=== PATIENT | female | born 1985 | race Caucasian/White ===

== ENCOUNTER 2016-05-23 10:20 | Emergency (ER) | payer BC ==
[2016-05-23 10:37] VITALS: BP 127/86
--- NOTE | 2016-05-23 12:05 | UC ---
Katie Mantilla Salem, [facility] for [facility] on 05/23/16 at 1156 . Complaint Female HPI - HPI Summary HPI Summary: HPI: Patient is a 30 y/o female who presents to with lower back and abd pain since 2 days. She states that pain is localized on the left anterior abd today and she reports left flank pain. (Pt states that last time she was in pain for pyelonephritis it was on the right side and pain was more severe.) She reports 2 episodes of diarrhea yesterday and pain while urinating, but denies fever and chills. She also states that she usually experiences urgency and that is unchanged from baseline. PMHx: Pyelonephritis. FHx: Type 2 DM - both grandparents. Renal calculi - father. note: VSS, afebrile 98.3F, post ox: 99%, LNMP: Apr 2016, rare EtOH, nonsmoker: Hx: kidney infection, sepsis; non-known allergies; Visit Hx: pyelonephritis July 2015. On 07/17/2015 c/o of 3 day hx of RLQ pain. She also c/o fever, chills, N/V, hematuria. She was in mild distress and urine had 3+ Leukocyte Esteras, 2+ blood , WBC of 19.3. Was admitted for pyelonephritis. Treated with Cipro. Nurses note: Started on Friday night, had to urinate more frequently. Wed started having lower abdominal pressure, and left-sided flank pain and ache. Has a history of kidney infection with sepsis: Jul, 2015. - History Of Current Complaint Chief Complaint: UCGU Stated Complaint: LOWER BACK/SIDE PAIN Time Seen by Provider: 05/23/16 10:45 Hx Obtained From: Patient Hx Last Menstrual Period: Last week in Apr Onset/Duration: Gradual Onset, Lasting Days - 2 days. Timing: Constant Severity Initially: Moderate Severity Currently: Moderate Aggravating Factor(s): Nothing Alleviating Factor(s): Nothing Associated Signs And Symptoms: Positive: Back Pain - Left CVA pain.. Negative: Fever - Allergies/Home Medications Allergies/Adverse Reactions: Allergies Allergy/AdvReac Type Severity Reaction Status Date / Time No Known Allergies Allergy Verified 07/17/15 12:34 Home Medications: Home Medications Benzipro 05/23/16 [History] PMH/Surg Hx/FS Hx/Imm Hx Endocrine History Of: Denies: Diabetes, Thyroid Disease Cardiovascular History Of: Denies: Cardiac Disorders, Hypertension, Pacemaker/ICD Respiratory History Of: Reports: Pneumonia - 2008 Denies: COPD, Asthma GI/ History Of: Denies: Ulcer - Surgical History Surgical History: Yes Surgery Procedure, Year, and Place: wisdom teeth 2014. May 2015- [facility] - ACL repair - Family History Known Family History: Positive: Diabetes - Both grandparents., Other - Renal calculi father. - Social History Alcohol Use: Rare Alcohol Amount: one day a week Substance Use Type: None Smoking Status (MU): Never Smoked Tobacco - Immunization History Most Recent Influenza Vaccination: 2013 Most Recent Tetanus Shot: Unsure Most Recent Pneumonia Vaccination: never Review of Systems Constitutional: Negative Gastrointestinal: Abdominal Pain - Left lower and left flank pain., Diarrhea Genitourinary: Other - Pain urinating. All Other Systems Reviewed And Are Negative: Yes Physical Exam Triage Information Reviewed: Yes Appearance: Well-Appearing, No Pain Distress, Well-Nourished Vital Signs: Initial Vital Signs Temp 98.3 F 05/23/16 10:29 Pulse 93 05/23/16 10:29 Resp 18 05/23/16 10:29 BP 127/86 05/23/16 10:29 Pulse Ox 99 05/23/16 10:29 Vital Signs Reviewed: Yes Eyes: Positive: Conjunctiva Clear ENT: Positive: Hearing grossly normal, Pharynx normal, TMs normal. Negative: Muffled/hoarse voice Neck: Positive: Supple, No Lymphadenopathy Respiratory: Positive: Chest non-tender, Lungs clear, Normal breath sounds, No respiratory distress Cardiovascular: Positive: RRR, No Murmur Abdomen Description: Positive: Soft, CVA Tenderness (L), Other: - POSSIBLE MILD LEFT CVA TENDERNESS. LLQ DISCOMFORT WITH PALPATION MOSTLY OVER INGUINAL REGION. Bowel Sounds: Positive: Present Musculoskeletal: Positive: Strength Intact, Other: - BYRD. Neurological: Positive: Alert Psychological: Positive: Age Appropriate Behavior Complaint Female Dx - Course Course Of Treatment: MDM: I discussed with pt at length possibility of UTI. Although the UA does not support that dx. Given her past medical hx, I started her on Cipro. She knows to call me in 2 days and she will go to the ER for fever , increased pain, or changes in sx. Differential dx: UTI, early pyelonephritis, ovarian cyst, gastroenteritis, or diverticulitis. UA: Urobilinogen o/w within normal limits. - Differential Dx/Diagnosis Provider Diagnoses: Dx: Early pyelonephritis or cystitis. Discharge - Discharge Plan Condition: Stable Disposition: HOME Prescriptions: Ciprofloxacin TAB* [Cipro Tab*] 500 mg PO BID #14 tab MDD 2 Patient Education Materials: Urinary Tract Infection in Women (ED), Acute Pyelonephritis (ED) Referrals: Dayne SANCHEZ,Quan Benton [Primary Care Provider] - Additional Instructions: WE DISCUSSED: This may be a bladder infection or early pyelonephritis. Given your history, I have started you on Cipro for 7 days. We will send your urine for culture. Go to ED for any temperature, increased pain or if you are not improving in 2 days. You can also call me here in 2 days with any questions or concerns. The documentation as recorded by the Katie tran Salem accurately reflects the service I personally performed and the decisions made by me, Neftaly Kyle MD.
== END 2016-05-23 12:10 | disposition home or self-care (01) ==
LOC: UCEAST 10:20
DX: R10.32 Left lower quadrant pain (principal); R19.7 Diarrhea, unspecified; R30.0 Dysuria
CPT/HCPCS: 81003; 99212; G0463

== ENCOUNTER 2016-06-26 10:41 | Emergency (ER) | payer BC ==
[2016-06-26 11:14] VITALS: BP 124/72
--- NOTE | 2016-06-26 11:33 | UC ---
Throat Pain/Nasal Roman HPI - HPI Summary HPI Summary: compaliont of sore throat that started 2 days ago dry cough that hurts her throat nasal congestion started today denies fever and chills, headache, N/V/D, ear pain took some aleve yesterday with some relief drinking hot water with honey with relief - History of Current Complaint Chief Complaint: UCGeneralIllness Stated Complaint: SORE THROAT Time Seen by Provider: 06/26/16 11:26 Hx Obtained From: Patient Hx Last Menstrual Period: 06/03/16 - Allergies/Home Medications Allergies/Adverse Reactions: Allergies Allergy/AdvReac Type Severity Reaction Status Date / Time No Known Allergies Allergy Verified 06/26/16 11:04 PMH/Surg Hx/FS Hx/Imm Hx Previously Healthy: Yes Endocrine History Of: Denies: Diabetes, Thyroid Disease Cardiovascular History Of: Denies: Cardiac Disorders, Hypertension, Pacemaker/ICD Respiratory History Of: Reports: Pneumonia - 2008 Denies: COPD, Asthma GI/ History Of: Denies: Ulcer - Surgical History Surgical History: Yes Surgery Procedure, Year, and Place: wisdom teeth 2014. May 2015- [facility] - ACL repair - Family History Known Family History: Positive: Diabetes - Both grandparents., Other - Renal calculi father. Negative: Cardiac Disease, Hypertension - Social History Occupation: Employed Full-time Lives: With Family Alcohol Use: Rare Alcohol Amount: one day a week Substance Use Type: None Smoking Status (MU): Never Smoked Tobacco - Immunization History Most Recent Influenza Vaccination: 2013 Most Recent Tetanus Shot: Unsure Most Recent Pneumonia Vaccination: never Review of Systems Constitutional: Negative Skin: Negative Eyes: Negative ENT: Sore Throat, Nasal Discharge Respiratory: Cough Cardiovascular: Negative Gastrointestinal: Negative Genitourinary: Negative Motor: Negative Neurovascular: Negative Musculoskeletal: Negative Neurological: Negative Psychological: Negative All Other Systems Reviewed And Are Negative: Yes Physical Exam Triage Information Reviewed: Yes Appearance: No Pain Distress, Well-Nourished Vital Signs: Initial Vital Signs Temp 98.9 F 06/26/16 11:06 Pulse 91 06/26/16 11:06 Resp 18 06/26/16 11:06 BP 124/72 06/26/16 11:06 Pulse Ox 99 06/26/16 11:06 Vital Signs Reviewed: Yes Eyes: Positive: Conjunctiva Clear ENT: Positive: Pharyngeal erythema, Nasal congestion, Nasal drainage, TMs normal Dental: Positive: Cervical Lymphadenopathy Respiratory: Positive: Lungs clear, Normal breath sounds, No respiratory distress, No accessory muscle use Cardiovascular: Positive: RRR, No Murmur, Pulses Normal Abdomen Description: Positive: Nontender, Soft Bowel Sounds: Positive: Present Musculoskeletal Exam: Normal Neurological Exam: Normal Psychological Exam: Normal Skin Exam: Normal Throat Pain/Nasal Course/Dx - Differential Dx/Diagnosis Differential Diagnosis/HQI/PQRI: Pharyngitis, Tonsillitis, URI Provider Diagnoses: viral pharyngitis Discharge - Discharge Plan Condition: Stable Disposition: HOME Patient Education Materials: Pharyngitis (ED) Referrals: Dayne SANCHEZ,Quan Benton [Medical Doctor] - Additional Instructions: PHARYNGITIS (Sore Throat) What is Pharyngitis? The medical name for a sore throat is Pharyngitis. It is caused by an infection or irritation of your throat or tonsils. The infection can be caused by a virus or by bacteria. Not everyone with Pharyngitis needs antibiotics. Antibiotics will not make viral infections better, and they will not help a sore throat caused by irritation. Symptoms May Include: Sore throat Swelling of the glands in the neck Trouble or pain with swallowing Fever Headache Cough Extreme tiredness Ear pain Treatment Recommendations: Gargle every few hours with a solution of 1/4 teaspoon of salt dissolved in 1/ 2 cup of warm water. Drink plenty of warm beverages, like tea with lemon, (with or without honey) and soup. You may eat and drink cold foods and liquids like frozen yogurt, popsicles, and ice water if that makes your throat feel better. The goal is to keep you well hydrated. Use a "cool-mist" vaporizer or humidifier in the room where you spend most of your time. If you get a sore throat often, consider adding an electronic air filter and humidifier to your furnace system. Don't smoke. Do not eat spicy foods. Take medicine exactly as prescribed. If you do not think it is helping, call your healthcare provider. Do not increase how much or how often you take it without getting their OK first. Non-prescription anti-inflammatory medicine like ibuprofen (Motrin, Advil) or naproxen (Aleve) may help lessen the pain. You should not take these medicines if you have had bleeding in your stomach in the past. Acetaminophen ( Tylenol) is another choice of medicine that may help the pain. If pain medicine that makes you tired or sleepy or contains narcotics is prescribed, you should not drink, drive, or participate in any other activities that you need to be clear-headed for. Please keep all medicines out of the reach of children. Do not get in close contact with anyone you know who has a sore throat. Use throat lozenges (Cepostat, [place], etc.) or suck on hard candy for temporary relief of the pain with swallowing. (Do not give to children under age 5.) Call Your Doctor or Return Here IF: Your symptoms do not start to get better within 2 days or you become worse. You have a fever over 101.0 F orally. You cant swallow liquids or saliva. You are drooling. You start to have trouble breathing. You start to have a rash. You start to have a stiff neck. You start to have pain in your chest. You start to have any symptoms that are new or worry you. Your blood pressure is pre-hypertensive reading. Please contact your primary care provider within 1 day -4 weeks for further evaluation.
== END 2016-06-26 12:07 | disposition home or self-care (01) ==
LOC: UCEAST 10:41
DX: J02.9 Acute pharyngitis, unspecified (principal); R05 Cough; R09.81 Nasal congestion
CPT/HCPCS: 87651; 99211; G0463

== ENCOUNTER 2017-04-18 07:07 | Day surgery (SDC) | payer BC ==
[~2017-04-18 07:07] MED LIST: Buffered Lidocaine 0.9% SYRIN* 5 ML/SYR SYRINGE INTRADERM ONE; Dexamethasone IV* 4 MG/ML 1 ML (4 MG) IV SLOW PU ONE; Famotidine IV* 10 MG/ML 2 ML (20 mg) IV ONE
[2017-04-18] MEDS ORDERED: Famotidine IV* 10 MG/ML 2 ML (20 mg) ONE (07:21)
[2017-04-18] MEDS ORDERED: Dexamethasone IV* 4 MG/ML 1 ML (4 MG) ONE (07:21)
[2017-04-18] MEDS ORDERED: Buffered Lidocaine 0.9% SYRIN* 5 ML/SYR SYRINGE ONE (07:21)
[2017-04-18] MEDS ORDERED: Midazolam* 1 MG/ML 10 ML VIAL (10 MG) ONE (08:24)
[2017-04-18] MEDS ORDERED: fentaNYL* 50 MCG/ML 2 ML VIAL (100 MCG VIAL) ONE ×5 (08:24→09:59)
[2017-04-18] MEDS ORDERED: Propofol* 10 MG/ML 20 ML BTL IV PUSH ONE (08:24)
[2017-04-18] MEDS ORDERED: Ondansetron INJ* 2 MG/ML VIAL ONE (08:24)
[2017-04-18] MEDS ORDERED: Ketorolac INJ* 30 MG/ML 1 ML VIAL ONE (08:24)
[2017-04-18] MEDS ORDERED: Lidocaine 2% PF * 5 ML VIAL ONE (08:25)
[2017-04-18] MEDS ORDERED: Phenylephrine INJ* 10 MG/ML 1 ML VIAL (10 MG) ONE (08:25)
[2017-04-18] MEDS ORDERED: VASOPRESSIN 20 UNITS/ML 1 ML VIAL ONE (08:38)
[2017-04-18] MEDS ORDERED: oxyCODONE/Acetamin 5/325 MG* TAB PO PRN (09:03)
[2017-04-18] MEDS ORDERED: DiMENhydriNATE IV* 50 MG/ML VIAL IV PUSH PRN (09:03)
[2017-04-18] MEDS ORDERED: Ondansetron INJ* 2 MG/ML VIAL IV PRN (09:03)
[2017-04-18] MEDS ORDERED: Naloxone* 0.4 MG/ML 1 ML VIAL IV PRN (09:03)
[2017-04-18] MEDS ORDERED: Scopolamine 1.5 mg* PATCH TRANSDERM PRN (09:03)
[2017-04-18] MEDS ORDERED: Glycopyrrolate IV* 0.2 MG/ML 1 ML VIAL ONE (09:25)
[2017-04-18] MEDS ORDERED: oxyCODONE/Acetamin 5/325 MG* TAB ONE (09:53)
[2017-04-18] MEDS ORDERED: Scopolamine 1.5 mg* PATCH ONE (09:53)
[2017-04-18] MEDS: fentaNYL* 50 MCG/ML 2 ML VIAL (100 MCG VIAL) IV PRN ×2 (10:00→10:05)
[2017-04-18 10:45] VITALS: BP 122/83
--- NOTE | 2017-04-18 20:39 | OP ---
OPERATIVE REPORT: DATE OF OPERATION: 04/18/17 DATE OF : 87 SURGEON: Mike Conroy MD ANESTHESIA: General endotracheal tube. PRE-OP DIAGNOSIS: Submucous fibroid. POST-OP DIAGNOSIS: Submucous fibroid. OPERATIVE PROCEDURE: Hysteroscopy, D and C, MyoSure. COMPLICATIONS: None. FINDINGS: On exam under anesthesia, the uterus was mid position and not enlarged. On hysteroscopy, t here was a large 3 cm submucous fibroid coming from the anterior fundal wall. Both tubal ostia visua lized. The rest of the cavity appeared normal. DESCRIPTION OF PROCEDURE: The patient identified, procedure identified as D and C, hysteroscopy, Mario Alberto Sure. The patient was taken to the operating room, prepped and draped in the usual fashion in the do rsal lithotomy position under general anesthesia. Two single-toothed tenaculums were placed on the a nterior lip of the cervix. The cervix was dilated up to a #27 Sunny dilator. The MyoSure hysteroscop e was inserted. The above findings were noted through the MyoSure hysteroscope. 20 cc of dilute vas opressin solution was injected directly into the fibroid after aspiration. The MyoSure, initially th e regular was placed and MyoSure was used to resect the fibroid, this after a while stopped working a nd a MyoSure XL was used to bring down the large fibroid with it. It did have broad base down to the level of the endometrium. 1200 cc of deficit was noted and decision was made to terminate the proce dure at this point. Most of the fibroid had been resected and it was felt that it was an adequate pr ocedure. All sponge and instrument counts were correct and all instruments were removed from the vag jose and the patient returned to recovery room in stable condition. [id number]/[facility] #: [id number]
== END 2017-04-18 11:11 | disposition home or self-care (01) ==
LOC: OR 07:07
PROVIDERS: ATTEND Obstetrics & Gynecology
DX: D25.0 Submucous leiomyoma of uterus (principal); N93.9 Abnormal uterine and vaginal bleeding, unspecified
CPT/HCPCS: 81025; 88305; 88360; A9270-GY; J1100; J1885; J2250; J2405; J2704; J3010

== ENCOUNTER 2017-10-01 10:56 | Emergency (ER) | payer BC ==
[2017-10-01 11:59] LABS: Urine Appearance Clear; Urine Blood Negative (Negative); Urine Color Colorless; Urine Ketones Negative (Negative); Urine Protein Negative (Negative); Urine Specific Gravity 1.001 (1.010-1.030); Urine Urobilinogen Negative (Negative)
--- NOTE | 2017-10-01 13:29 | ED ---
GI/ HPI - HPI Summary HPI Summary: This is Juany tran, documenting for attending Linda Lopez MD. This patient is a 31 year old F presenting to [facility] with a chief complaint of suprapubic pain with urination for the past three days that has worsened today with left flank pain. Pain is worsened with urination. Mervin burning with urination, fever, chills, changes in urine appearance or smell. Patient reports a history of urosepsis resulting in three nights of hospitalization with similar symptoms. She was put on Ciprofloxacin upon discharged, which worked well for her. - History of Current Complaint Chief Complaint: EDUrogenitalProblems Time Seen by Provider: 10/01/17 13:18 Stated Complaint: PAIN URINATING Hx Last Menstrual Period: 06/03/16 Onset/Duration: Started Days Ago, Worse Since - today Timing: Constant Severity: Moderate Pain Intensity: 3 Location of Pain: Suprapubic, Flank Associated Signs and Symptoms: Positive: Flank Pain, UTI Symptoms. Negative: Diaphoresis, Fever, Hematuria - Additional Pertinent History Primary Care Physician: KAELYN - Allergy/Home Medications Allergies/Adverse Reactions: Allergies Allergy/AdvReac Type Severity Reaction Status Date / Time Seasonal/Environmental Allergy Congestion Uncoded 04/18/17 07:26 Allergies PMH/Surg Hx/FS Hx/Imm Hx Endocrine/Hematology History: Denies: Hx Diabetes, Hx Thyroid Disease Cardiovascular History: Denies: Hx Hypertension, Hx Pacemaker/ICD, Other Cardiovascular Problems/ Disorders Respiratory History: Reports: Hx Pneumonia - 2008 Denies: Hx Asthma, Hx Chronic Obstructive Pulmonary Disease (COPD), Other Respiratory Problems/Disorders GI History: Denies: Hx Ulcer, Other GI Disorders History: Reports: Hx Kidney Infection - 2016, [place]eloneph[place] with [place]rosepsis- [place] [facility] [place]: Hx Renal Disease, Other Problems/Disorders Musculoskeletal History: Reports: Hx Orthopedic Injury - ACL tear Denies: Other Musculoskeletal History Sensory History: Denies: Hx Contacts or Glasses, Hx Hearing Aid Opthamlomology History: Denies: Hx Contacts or Glasses Neurological History: Denies: Other Neuro Impairments/Disorders Psychiatric History: Denies: Hx Panic Disorder - Surgical History Surgery Procedure, Year, and Place: [place] teeth 2014. ACL repair - Lt KNEE May 2015- [facility] - Hx Anesthesia Reactions: No Infectious Disease History: No Infectious Disease History: Denies: Hx Clostridium Difficile, Hx Hepatitis, Hx Human Immunodeficiency Virus (HIV), Hx of Known/Suspected MRSA, Hx Shingles, Hx Tuberculosis, Hx Known/ Suspected VRE, Hx Known/Suspected VRSA, History Other Infectious Disease, Traveled Outside the [place] in Last 30 Days - Family History Known Family History: Positive: Diabetes - Both grandparents., Other - Renal calculi father. Negative: Cardiac Disease, Hypertension - Social History Alcohol Use: Occasionally Alcohol Amount: one day a week Substance Use Type: Reports: None Smoking Status (MU): Never Smoked Tobacco Review of Systems Negative: Fever, Chills Positive: Abdominal Pain - suprapubic Positive: flank pain, pain. Negative: burning, hematuria All Other Systems Reviewed And Are Negative: Yes Physical Exam - Summary Physical Exam Summary: Appearance: Well-appearing, Well-nourished Skin: Warm Eyes: Normal ENT: Normal Neck: Supple, nontender Respiratory: Clear to auscultation Cardiovascular: Regular rate, regular rhythm. Normal S1, S2. Abdomen: Soft, left CVA tenderness with right lower abdominal with mild lower abdominal tenderness Musculoskeletal: Normal, Strength/ROM Intact Neurological: Normal, A&Ox3 Psychiatric: Normal General: No acute distress Triage Information Reviewed: Yes Vital Signs On Initial Exam: Initial Vitals Temp Pulse Resp BP Pulse Ox 98.7 F 88 16 137/83 98 10/01/17 11:01 10/01/17 11:01 10/01/17 11:01 10/01/17 11:01 10/01/17 11:01 Vital Signs Reviewed: Yes Diagnostics - Vital Signs Vital Signs Temp Pulse Resp BP Pulse Ox 10/01/17 11:01 98.7 F 88 16 137/83 98 - Laboratory Lab Results: Lab Results 10/01/17 Range/Units 11:47 Urine Color Colorless Urine Appearance Clear Urine pH 7.0 (5-9) Ur Specific Adell 1.001 L (1.010-1.030) Urine Protein Negative (Negative) Urine Ketones Negative (Negative) Urine Blood Negative (Negative) Urine Nitrate Negative (Negative) Urine Bilirubin Negative (Negative) Urine Urobilinogen Negative (Negative) Ur Leukocyte Esterase Negative (Negative) Urine Glucose Negative (Negative) Lab Statement: Any lab studies that have been ordered have been reviewed, and results considered in the medical decision making process. GIGU Course/Dx - Course Assessment/Plan: Left CVA tenderness, UA done in ED- elevated pH at 7.0 with urinary sx of urinary pressure and left CVA tenderness, has had an episode of pyelo in 2016 and feels similar, will tx with outpt cipro 500 BID x 10 days - Diagnoses Differential Diagnoses - Female: Urinary Tract Infection - Ascending Provider Diagnoses: UTI (urinary tract infection) Discharge - Sign-Out/Discharge Documenting (check all that apply): Patient Departure - Discharge Plan Condition: Stable Disposition: HOME Prescriptions: Ciprofloxacin TAB* [Cipro 500 MG TAB*] 500 mg PO BID 10 Days #20 tab Referrals: Melissa Costello MD [Primary Care Provider] - Additional Instructions: Follow up with PCP if any concerns - Billing Disposition and Condition Condition: STABLE Disposition: Home
[2017-10-01 14:01] VITALS: BP 133/87
== END 2017-10-01 13:57 | disposition home or self-care (01) ==
LOC: ED 10:56
DX: N39.0 Urinary tract infection, site not specified (principal); Z83.3 Family history of diabetes mellitus; Z84.1 Family history of disorders of kidney and ureter
CPT/HCPCS: 81003; 99282

== ENCOUNTER 2018-07-19 12:07 | Observation (INO) | payer BC ==
--- OUTSIDE RECORDS SUMMARY | 2018-07-19 12:19 | XMS REPORT | Continuity of Care Document ---
:1985 Author Organization [facility] Address [address], [place] [id number] Phone Care Team Providers Name Role Phone Glenis Powell NP Unavailable Unavailable Allergies, Adverse Reactions, Alerts Substance Reaction Status No Known Allergies Active Medications Medication Instructions Dosage Effective Dates Status Comments (start - stop) TRANEXAMIC ACID Not Available - Active (unknown strength) Problems Condition Effective Dates (start - Clinical Status Comments stop) Body mass index (BMI) 32.0-32.9, - adult Human immunodeficiency virus [HIV] - counseling Encounter for screening for human - immunodeficiency virus Encounter for oth general cnsl and advice on contraception Encntr screen for infections w sexl mode of transmiss Noninflammatory disorder of vagina, unspecified Encounter for ot general cnsl and - advice on contraception Body mass index (BMI) 33.0-33.9, adult 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) w/o abn findings Irregular menstruation, unspecified Submucous leiomyoma of uterus Other specified noninflammatory disorders of uterus Encounter for oth general cnsl and advice on contraception Encntr screen for infections w sexl mode of transmiss Excessive and frequent menstruation with regular cycle Encntr screen for infections w sexl mode of transmiss Encounter for oth general cnsl and advice on contraception Anogenital (venereal) warts Encounter for oth general cnsl and advice on contraception Encounter for surveillance of contraceptive pills Encounter for surveillance of contraceptive pills 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 Other Retail Product Demo Specialist.Svc. STI WET SMEAR ASSAY OF BODY FLUID-PH Results Test Name Date and Time Measure Units Reference Range Abnormal Flag Status Comments Panel Description: Wet Mount Final Wet Mount 13:47:30 NegativeHyphae/Martine: noBudding Final yeast: noTrich: noClue cells: noWBCs: yes (few)Amine/Whiff test: negativepH: 5.5 Panel Description: C trach DNA XXX Ql PCR Final Swab CT - Negative N Final Performed Vaginal 00:00:00 by:
&emsp;&ensp;CDD ([id number])

Panel Description: Amplified GC - Vaginal Final Swab GC - Negative N Final : Vaginal 00:00:00 No

Performed by:
&emsp;&ensp;CDD ([id number])

Advance Directives Directive Yes / No Effective Date File Name No information Encounters Encounter Practice Location Reason(s) Diagnoses Date Provider Providers Description For Visit Copied on Encounter PREVENTIVE [facility] Vaginal Human Sherry Glenis. Referring COUNSELING, [facility] [place] Discharge immunodeficiency 1-[address] Provider: 8-14 Minutes Southern a/o Odor virus [HIV] [address] St, [place], [place] ([place], [address], Shanice Mcfarlane, [address]) ter for [place]. [address] screening for [address], St, [place], [place], [place], [place], [address]. [id number], virusEncounter tel:[phone] [place] for ot general [phone] tel:+ cnsl and advice [phone] on contraceptionEnc ntr screen for infections w sexl mode of transmissNoninfl ammatory disorder of vagina, unspecified [facility] Encounter for Mar- Giaino Referring [facility] [place] ot general cnsl 4-201 Melissa. Provider: [place] and advice on [address] [place] contraception[address]od [address], [place], [place], [place], [address] [place], [address], [address] (BMI) 33.0-33.9, [place]. [address], St, [place], adultEncntr for tel:[phone] [place], [place] [address] [place], [address]. [id number], (general) tel:+[phone] [place] (routine) w/o [id number] tel:[phone] abn [phone] findingsIrregula r menstruation, unspecified [facility] Submucous Nov-1 Sherry Glenis. [facility] [place] leiomyoma of 6 [address] uterus [address], [place], [place], [address], [place], [address], [place], [place], [id number], [place] tel:[phone] [facility] Other specified Nov-0 Sherry Glenis. [facility] [place] noninflammatory 2- [address] Southern disorders of [address], [place], [place], [address], [place], [address], [place], [place], [id number], [place] tel:[phone] [facility] Body mass index Oct-3 Sherry Glenis. Referring [facility] [place] (BMI) 32.0-32.9, 0-201 [address] Provider: [facility] adultEncounter [address], [place], [place], [address], [place], [address] [place], [address] cnsl and advice [place]. [address] on [address], St, [place], contraceptionEnc [place], [place], [place], [address]. [id number], infections w [place] sexl mode of tel:[phone] transmissExcessi [id number] ve and frequent menstruation with regular cycle [facility] Encntr screen Mar-0 Sherry Glenis. [facility] [place] for infections w [address] [place] sexl mode of [address], [place], [place], [address], [facility], [address] for oth [place]. [address] general cnsl and St, [place], advice on [place], contraception [id number], [place] tel:[phone] [facility] Anogenital Apr- Sherry Galvin. [facility] [place] (venereal) [address] [place] wartsEncounter [address], [place], [place], [address], [facility], [address] cnsl and advice [place]. [address], [place], [place], [id number], [place] tel:[phone] [facility] Encounter for Dawna [facility] [place] surveillance of [place]. [address] contrace[address], [place], [place], [facility], [address] [address] tel:[phone] St, [place], [address] [place], [id number], [place] tel:[phone] [facility] Jan- Dawna [facility] [place]. [address], [place], [place], [facility], [facility] [address]. [address] tel:[phone] St, [place], [address] [place], [id number], [place] tel:[phone] [facility] Encounter for Jan- [place] [facility] [place] surveillance of [place]. [address] contrace[address], [place] pills [place], [facility], [facility] [address]. [address] tel:[phone] St, [place], [address] [place], [id number], [place] tel:[phone] [facility] TIRE RECAPPER Exam, 0 Parete [facility] [place] Routine WWEOCP, . [address] Surve[address], [place], [place], [facility], [address] [address] tel:[phone] St, [place], [address] [place], [id number], [place] tel:[phone] Family History Family Member Diagnosis Age At Onset Mother No history of Myocardial infarction 1st degree relative No hx of cancer of breast, colon, endometrium or ovary Father No history of Myocardial infarction Mother No history of Stroke No family history of Cancer, breast 1st degree relative No hx of coronary heart disease (female <65, male <55) No family history of Cancer, ovarian 1st degree relative No hx of venous thromboembolism Father No history of Stroke Immunizations Vaccine Date Status Comments measles, mumps and rubella administered Note: PER HEALTH HX ; Source: virus vaccine Source Unspecified measles, mumps and rubella administered Note: PER HEALTH HX ; Source: virus vaccine Source Unspecified hepatitis B vaccine, adult administered Note: PER HEALTH HX ; Source: dosage Source Unspecified hepatitis B vaccine, adult administered Note: PER HEALTH HX ; Source: dosage Source Unspecified Hep B, adult, 3 dose administered Note: PER HEALTH HX ; Source: Source Unspecified hepatitis A vaccine, adult administered Note: PER HEALTH HX ; Source: dosage Source Unspecified Hep A (adult) administered Note: PER HEALTH HX ; Source: Source Unspecified Payers Payer name Insurance type Covered green party ID Authorization(s) [facility] [id number] Social History Type Description Quantity Date Captured Comments Alcohol Use Details Unknown Caffeine Use Details Unknown Tobacco Use Status Never smoked tobacco Smoking Status Never smoker Non-Smoking Tobacco : No Details Available : No Details Available 2018 Use Details Sex Female Vital Signs Date / Height Weight BMI Pulse Blood Temperature Respiratory Body Head BMI Pulse Inhaled Time: Rate Pressure Rate Surface Circumference percentile Ox Ox Area No information Chief Complaint And Reason For Visit Most recent encounter only, dated '07/15/2018 12:40'. Vaginal Discharge a /o Odor (chief complaint) Reason For Referral Reason For Referral No information Plan Of Treatment Date Type Action Status Goal Dietary management education, guidance, and counseling completed Referral Ordered: ordered Mike Ortiz (related to Submucous leiomyoma of uterus) Referral Referred To: ordered Mike Ortiz [address] [place], [phone] Ordered: Referrals: Box Gluer. Mike Ortiz. Evaluate and treat History Of Present Illness Encounter Date Complaint History Of Present Illness No information Functional Status Date Functional Assessment No information Medications Administered Medication Instructions Dosage Effective Dates (start - stop) Status Comments No information Instructions Date Instruction Additional Information Dietary management education, Related to Body mass index (BMI) guidance, and counseling 32.0-32.9, adult Assessments Type Assessment Date assessment Human immunodeficiency virus [HIV] counseling assessment Encounter for screening for human immunodeficiency virus 2018 assessment Encounter for oth general cnsl and advice on contraception 2018 assessment Encntr screen for infections w sexl mode of transmiss assessment Noninflammatory disorder of vagina, unspecified Goals Health Concern Goal Type Priority Status Date No information Medical Equipment Description Device [place] Device Identifier Effective Dates (start - stop ) Status No information Mental Status Date Cognitive Assessment No information Health Concerns Observation Date No information Concern Status Date No information
--- OUTSIDE RECORDS SUMMARY | 2018-07-19 12:19 | XMS REPORT | Continuity of Care Document ---
:1985 External Reference #:[id number] Author Name Mike Conroy M.D. Address [address] [place] [address] Care Team Providers Name Role Phone Melissa Costello MD Primary Care Physician Unavailable Payers Date Identification Numbers Payment Provider Subscriber Policy Number: [id number] [facility] Bautista PayID: [id number] [address] [address] [place] [address] Advance Directives Description No Information Available Problems Description No Information Family History Date Family Member(s) Observation Comments Father due to HI () Mother A&W Children None Siblings 1 Siblings Oldest of 2 children First Sister A&W Paternal Grandfather due to Unknown to pt () Paternal Grandmother due to Unknown to pt () Maternal Grandfather due to Congestive Heart Failure () Maternal Grandmother due to Surgical complications () Social History Type Date Description Comments Sex Unknown Education Highest Level Completed, Master's Degree Marital Status Single Lives With Mother Sleep Typically sleeps 7 hours a night Pets 1 cat Pets 2 dogs 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 [place] Tobacco Use Start: Unknown Never Smoked Cigarettes ETOH Use Occasionally consumes alcohol 1-2 xwk Recreational Drug Use Denies Drug Use Tobacco Use Start: Unknown Patient has never smoked Smoking Status Reviewed: 07/15/18 Patient has never smoked Exercise Type/Frequency Exercises regularly 4xwk Seat Belt/Car Seat Always uses seat belt Currently Active Patient is currently sexually active Condom Use Always Contraceptive Methods Current methods include condoms Allergies, Adverse Reactions, Alerts Description No Known Drug Allergies Medications Active Medications SIG Qnty Indications Ordering Provider Date Ferrex 150 1 by mouth every 60caps Mike Conroy, 07/15/2018 150mg day M.DLinda Capsules Lysteda 2 by mouth three 30tabs Sudhakar Blackwell, 06/19/2018 650mg Tablets times a day CNM during period Ibuprofen Unknown Vitamin Plus Unknown Iron History Medications Microgestin 04/05 1 by mouth qd-28 63tabs Mike Pierce 04/09/2018 - day cycle Rui Conroy 06/10/2018 1-20mg-mcg Tablets Ferrex 150 1 by mouth every 60caps Mike Pierce 04/09/2018 - 150mg day Rui Conroy 06/16/2018 Capsules No Active Medications Unknown 06/03/2017 - 06/03/2017 Lysteda 2 by mouth three 30tabs Mike Pierce 06/03/2017 - 650mg Tablets times a day Rui Conroy 04/09/2018 during period Doxycycline Hyclate 1 by mouth twice 14tabs D25.0 Mike Pierce 05/13/2017 - a day Rui Conroy 06/03/2017 100mg Tablets No Active Medications Mike Pierce 02/21/2017 - Rui Conroy 05/13/2017 One Daily Unknown - Multivitamin/Iron 06/15/2018 Adult Tablets Medications Administered in Office Medication SIG Qnty Indications Ordering Provider Date PT SCRN Tbco Id as Non User Itzel Hernandez MD 06/18/2018 Injection PT SCRN Tbco Id as Non User Mike Conroy M.D. 06/03/2017 Injection PT SCRN Tbco Id as Non User Mike Conroy M.D. 05/13/2017 Injection PT SCRN Tbco Id as Non User Mike Conroy M.D. 04/08/2017 Injection Immunizations Description No Information Available Vital Signs Date Vital Result Comment 07/15/2018 3:02pm BP Systolic 122 mmHg BP Diastolic 72 mmHg Height 64 inches 5'4" Weight 196.00 lb BMI (Body Mass Index) 33.6 kg/m2 Last Menstrual Period [id number] 0 06/18/2018 2:00pm BP Systolic 132 mmHg BP Diastolic 80 mmHg Height 64 inches 5'4" Weight 197.00 lb BMI (Body Mass Index) 33.8 kg/m2 Last Menstrual Period 7819885 0 04/09/2018 2:22pm BP Systolic 132 mmHg BP Diastolic 86 mmHg Height 64 inches 5'4" Weight 202.00 lb BMI (Body Mass Index) 34.7 kg/m2 Last Menstrual Period 4400569 0 06/03/2017 2:05pm Height 64 inches 5'4" Weight 204.00 lb BMI (Body Mass Index) 35.0 kg/m2 Last Menstrual Period [id number] 0 05/13/2017 3:38pm BP Systolic 124 mmHg BP Diastolic 76 mmHg Body Temperature 97.4 F Oral Height 64 inches 5'4" Weight 201.00 lb BMI (Body Mass Index) 34.5 kg/m2 0 04/08/2017 3:04pm BP Systolic 108 mmHg BP Diastolic 82 mmHg Body Temperature 97.5 F Heart Rate 84 /min Respiratory Rate 14 /min Height 64 inches 5'4" Weight 206.00 lb BMI (Body Mass Index) 35.4 kg/m2 Last Menstrual Period 9196457 0 02/21/2017 2:58pm BP Systolic 122 mmHg BP Diastolic 82 mmHg Height 64 inches 5'4" Weight 208.00 lb BMI (Body Mass Index) 35.7 kg/m2 Last Menstrual Period [id number] 0 Results Test Date Facility Test Result H/L Range Note Laboratory test 04/18/2017 [facility] Surgical SEE RESULT [address] [place] [address] Pathology BELOW [phone] CBC Auto Diff 04/08/2017 [facility] White Blood 7.8 10^3/uL N 3.5-10.8 [place] [address] Count [phone] Red Blood Count 4.75 10^6/uL N 4.0-5.4 Hemoglobin 12.9 g/dL N 12.0-16.0 Hematocrit 40 % N 35-47 Mean Corpuscular Volume 84 fL N 80-97 Mean Corpuscular Hemoglobin 27 pg N 27-31 Mean Corpuscular HGB Conc 32 g/dL N 31-36 Red Cell Distribution Width 14 % N 10.5-15 Platelet Count 278 10^3/uL N 150-450 Mean Platelet Volume 10 um3 N 7.4-10.4 Abs Neutrophils 4.2 10^3/uL N 1.5-7.7 Abs Lymphocytes 2.7 10^3/uL N 1.0-4.8 Abs Monocytes 0.4 10^3/uL N 0-0.8 Abs Eosinophils 0.5 10^3/uL N 0-0.6 Abs Basophils 0.1 10^3/uL N 0-0.2 Abs Nucleated RBC 0 10^3/uL Granulocyte % 54.3 % N 38-83 Lymphocyte % 34.3 % N 25-47 Monocyte % 4.9 % N 1-9 Eosinophil % 5.8 % N 0-6 Basophil % 0.7 % N 0-2 Nucleated Red Blood Cells % 0.1 Type And Screen 04/08/2017 [facility] Patient Blood Type B Positive [place] [id number] [phone] Antibody Screen NEGATIVE 1 SEE RESULT BELOW Name: REGLA BAUTISTA : [address]: Mike Conroy MD Acct: [id number] Unit: [id number] AGE: 31 Location: OR Re04/18/17 SEX: F Status: DEP [facility] [place] SPEC: [id number] SAMINA: 04/18/17- SUBM DR: Mike Conroy MD REQ: [id number] RECD: 04/18/17-1056 STATUS: SOUT _ ORDERED: LEVEL 4, IMMUNO-QUANT FINAL DIAGNOSIS Uterus, endometrium, curettage: -- Abundant cellular smooth muscle fragments with significant mitotic activity. See comment. -- Secretory endometrium. -- No evidence of endometrial hyperplasia or neoplasia identified. Comment: Specimen demonstrates numerous fragments of cellular smooth muscle admixed with scattered elements of benign secretory endometrium. The smooth muscle fragments demonstrates increased mitotic activity (average of 8/10 high power wilcox with new count <10/10 HPF). No necrosis or significant atypia is noted. These findings escobedo classification as leiomyoma with significant mitotic activity. These lesions typically demonstrate clinical behavior comparable to conventional leiomyoma. An immunohistochemical stain for KI-67 was performed with appropriate controls and demonstrates a KI-67 index of less than 10% in smooth muscle. PRE-OPERATIVE DIAGNOSIS Submucous leiomyoma of uterus GROSS DESCRIPTION The specimen is received in formalin labeled, Fibroid, and consists of a 3.5 x 5.5 by up to 1.0 cm aggregate of goldsmith-white rubbery tissue fragments admixed with goldsmith-pink to red-brown irregular soft tissue fragments. Community Service Worker sections are submitted in four cassettes. Signed (signature on file) Harvinder Ahn MD [id number] END OF REPORT * ML=Testing performed at Main Lab DEPARTMENT OF PATHOLOGY, [address] [place] [address] Harvinder Ahn M.D. Director [facility] # [id number] Procedures Date Code Description Status 06/18/2018 83923 Echography Pelvic Limited Or Follow-Up Completed 06/18/2018 83092 Echography Transvaginal Completed 04/18/2017 71259 Hysteroscopy W/Removal Leiomyomta Completed Encounters Type Date Location Provider Dx Diagnosis Office Visit 06/18/2018 [facility] Itzel Hernandez MD D25.0 Submucous leiomyoma 2:15p of uterus N93.9 Abnormal uterine and vaginal bleeding, unspecified Office Visit 06/03/2017 2:00p [facility] Mike Pierce D25.0 Submucous leiomyoma Rui Conroy of uterus Office Visit 05/13/2017 3:40p [facility] Office Mike Merino5.0 Submucous leiomyoma Rui Conroy of uterus Office Visit 04/08/2017 3:20p [facility] Mike Pierce Z01.818 Encounter for other Rui Conroy preprocedural examination Office Visit 02/21/2017 3:20p [facility] Mike Merino5.0 Submucous leiomyoma Rui Conroy of uterus Plan of Treatment Future Appointment(s):07/22/2018 8:00 am - Mike Conroy M.D. at [facility]07/15/2018 - Mike Conroy M.D.D50.9 Iron deficiency anemia, ivfckqsuqerN53.0 Submucous leiomyoma of uterusComments:needs resection suspect it is prolapsing through the cervix
--- OUTSIDE RECORDS SUMMARY | 2018-07-19 12:19 | XMS REPORT | Continuity of Care Document ---
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 [facility] [place] [address], [place], [place], [address], [facility], [address] , [place], [place], [id number], [place] tel:[phone] [facility] Human Sherry Galvin. Referring [facility] [place] immunodeficiency [address] Provider: [facility] virus [HIV] [address], [place], [address], [place], [facility], [address] for [place]. [address] screening [address], [place], [place], [place], [address]. [id number], virusEncounter tel:+ [place] for oth general [phone] tel:+ cnsl and advice [phone] on contraceptionEnc ntr screen for infections w sexl mode of transmissNoninfl ammatory disorder of vagina, unspecified [facility] Encounter for José Miguel Referring [facility] [place] ot general cnsl 4 Melissa. Provider: Steve and advice on [address] [place] [address], [place], Guggino F, [facility], [address] [place], [address], [address] (BMI) 33.0-33.9, [address], [place], adultEncntr for tel:+7 [place], painter [place] [address] [place], [address]. [id number], (general) tel:+60 [place] (routine) w/o [id number] tel:[phone] abn [phone] findingsIrregula r menstruation, unspecified [facility] Submucous Sherry Galvin. [facility] [place] leiomyoma of 6 [address], [place], [place], [address], [facility], [address], [place], [place], [id number], [place] tel:[phone] [facility] Other specified Nov-0 Sherry Galvin. [facility] [place] noninflammatory - [address] disorders of [address], [place], [place], [address], [place], [address], [place], [place], [id number], [place] tel:[phone] [facility] Body mass index Oct-3 Sherry Galvin. Referring [facility] [place] (BMI) 32.0-32.9, 0-201 [address] Provider: [facility] adultEncount 7 , [place], [place], [address], [place], [address] [place], [address] cnsl and advice [place]. [address], [place], [place], contraceptionEnc [place], [address]. [id number], infections w [place] sexl mode of tel:[phone] transmissExcessi [phone] ve and frequent menstruation with regular cycle [facility] Encntr screen Mar-0 Sherry Galvin. [facility] [place] for infections w - [address] sexl mode of [address], [place], [place], [address], [place], [address] for oth [place]. [address] general cnsl and , [place], advice on [place], contraception [id number], [place] tel:[phone] [facility] Anogenital Apr- Sherry Galvin. [facility] [place] (venereal) [address], [place], [place], [address], [place], [address] cnsl and advice [place], [place], [place], [id number], [place] tel:[phone] [facility] Encounter for Apr- [facility] [place] surveillance of - [place]. [address], [place], [place], [place], [address] [address] tel:[phone] St, [place], [address] [place], [id number], [place] tel:[phone] [facility] Nov-1 Rap[facility] [place] 2-201 [place]. [address], [place], [facility], [address] [address] tel:[phone] St, [place], [address] [place], [id number], [place] tel:[phone] [facility] Encounter for [facility] [place] surveillance of Andrae. [address], [place], [facility], [address] [address] tel:+[phone] St, [place], [address] [place], [id number], [place] tel:[phone] [facility] COUPLER Exam, [place] [facility] [place] Routine [facility], [place]. [address] [facility] Surveillance [address], [place], [facility], [address] [address] tel:[phone] St, [place], [address] [place], [id number], [place] tel:[phone] Family History Family Member Diagnosis Age At [...] Unspecified Payers Payer name Insurance type Covered republican ID Authorization(s) [facility] [id number] Social History Type Description Quantity Date Captured Comments Alcohol Use Details Unknown Caffeine Use Details Unknown Tobacco Use Status Unknown Smoking Status Never smoker Sex Female Vital Signs Date / Height Weight BMI Pulse Blood Temperature Respiratory Body Head BMI Pulse Inhaled Time: Rate Pressure Rate Surface Circumference percentile Ox Ox Area No information Chief Complaint And Reason For Visit No information Reason For Referral Reason For Referral No information Plan Of Treatment Date Type Action Status Goal Dietary management education, guidance, and counseling completed Referral Ordered: ordered Mike Ortiz (related to Submucous leiomyoma of uterus) Referral Referred To: ordered Mike Ortiz [address] [place], [phone] Ordered: Referrals: Infrastructure Software Engineer. Mike Ortiz. Evaluate and treat History Of Present Illness Encounter Date Complaint History Of Present Illness No information Functional Status Date Functional Assessment No information Medications Administered Medication Instructions Dosage Effective Dates (start - stop) Status Comments No information Instructions Date Instruction Additional Information Dietary management education, Related to Body mass index (BMI) guidance, and counseling 32.0-32.9, adult Assessments Type Assessment Date No information Goals Health Concern Goal Type Priority Status Date No information Medical Equipment Description Device [place] Device Identifier Effective Dates (start - stop ) Status No information Mental Status Date Cognitive Assessment No information Health Concerns Observation Date No information Concern Status Date No information
--- NOTE | 2018-07-19 12:33 | ED ---
GI/ HPI - HPI Summary HPI Summary: This patient is a 32 year old female presenting to [facility] with a chief complaint of iron deficiency. The patient was experiencing vaginal bleeding for a month due to a fibroid. Her OBGYN stated on 2 days ago that her iron levels were too low (Hgb 6.9 L) and if she were to menstruate she would need to come to the ED. The patient began her menstrual period last night. The patient reports light- headedness. The patient denies pain, nausea, vomiting, palpitations, and constipation. The patient took 150 mg of iron this morning. The patient previously had a fibroid removal last April. Ciprofloxacin TAB* [Cipro 500 MG TAB*] 500 mg PO BID 10 Days #20 tab 10/01/17 [ Rx] - History of Current Complaint Chief Complaint: EDGeneral Time Seen by Provider: 07/19/18 12:26 Stated Complaint: BLOOD LEVELS NOW PER PT Hx Obtained From: Patient Hx Last Menstrual Period: 06/03/16 Onset/Duration: Started Days Ago Current Severity: None Pain Intensity: 0 Associated Signs and Symptoms: Positive: Lightheadedness - Additional Pertinent History Primary Care Physician: KAELYN - Allergy/Home Medications Allergies/Adverse Reactions: Allergies Allergy/AdvReac Type Severity Reaction Status Date / Time Seasonal/Environmental Allergy Congestion Uncoded 07/19/18 12:10 Allergies PMH/Surg Hx/FS Hx/Imm Hx Endocrine/Hematology History: Denies: Hx Diabetes, Hx Thyroid Disease Cardiovascular History: Denies: Hx Hypertension, Hx Pacemaker/ICD, Other Cardiovascular Problems/ Disorders Respiratory History: Reports: Hx Pneumonia - 2008 Denies: Hx Asthma, Hx Chronic Obstructive Pulmonary Disease (COPD), Other Respiratory Problems/Disorders GI History: Denies: Hx Ulcer, Other GI Disorders History: Reports: Hx Kidney Infection - 2016, Pyelonephritis with urosepsis- E Col[facility] - [facility] Denies: Hx Renal Disease, Other Problems/Disorders Musculoskeletal History: Reports: Hx Orthopedic Injury - ACL tear Denies: Other Musculoskeletal History Sensory History: Denies: Hx Contacts or Glasses, Hx Hearing Aid Opthamlomology History: Denies: Hx Contacts or Glasses Neurological History: Denies: Other Neuro Impairments/Disorders Psychiatric History: Denies: Hx Panic Disorder - Surgical History Surgery Procedure, Year, and Place: [place] teeth 2014. ACL repair - Lt KNEE May 2015- [facility] - Hx Anesthesia Reactions: No Infectious Disease History: No Infectious Disease History: Denies: Hx Clostridium Difficile, Hx Hepatitis, Hx Human Immunodeficiency Virus (HIV), Hx of Known/Suspected MRSA, Hx Shingles, Hx Tuberculosis, Hx Known/ Suspected VRE, Hx Known/Suspected VRSA, History Other Infectious Disease, Traveled Outside the [place] in Last 30 Days - Family History Known Family History: Positive: Diabetes - Both grandparents., Other - Renal calculi father. Negative: Cardiac Disease, Hypertension - Social History Alcohol Use: Occasionally Alcohol Amount: one day a week Substance Use Type: Reports: None Smoking Status (MU): Never Smoked Tobacco Review of Systems Negative: Palpitations Positive: Other. Negative: Vomiting, Nausea - denies constipation Negative: pain Neurological: Other - Lightheadedness All Other Systems Reviewed And Are Negative: Yes Physical Exam - Summary Physical Exam Summary: VITAL SIGNS: Reviewed. GENERAL: Patient is a well-developed and nourished FEMALE who is lying comfortable in the stretcher. Patient is not in any acute respiratory distress. HEAD AND FACE: No signs of trauma. No ecchymosis, hematomas or skull depressions. No sinus tenderness. EYES: Pale sclera, EOMI x 2, No injected conjunctiva, no nystagmus. EARS: Hearing grossly intact. Ear canals and tympanic membranes are within normal limits. MOUTH: Oropharynx within normal limits. NECK: Supple, trachea is midline, no adenopathy, no JVD, no carotid bruit, no c- spine tenderness, neck with full ROM. CHEST: Symmetric, no tenderness at palpation LUNGS: Clear to auscultation bilaterally. No wheezing or crackles. CVS: Tachycardic, regular rhythm, S1 and S2 present, no murmurs or gallops appreciated. ABDOMEN: Soft, non-tender. No signs of distention. No rebound no guarding, and no masses palpated. Bowel sounds are normal. EXTREMITIES: FROM in all major joints, no edema, no cyanosis or clubbing. NEURO: Alert and oriented x 3. No acute neurological deficits. Speech is normal and follows commands. SKIN: Dry and warm, pale. VENEER MATCHER: Patient Declined Exam Triage Information Reviewed: Yes Vital Signs On Initial Exam: Initial Vitals Temp Pulse Resp BP Pulse Ox 98.1 F 113 16 136/89 100 07/19/18 12:10 07/19/18 12:10 07/19/18 12:10 07/19/18 12:10 07/19/18 12:10 Vital Signs Reviewed: Yes Diagnostics - Vital Signs Vital Signs Temp Pulse Resp BP Pulse Ox 07/19/18 12:10 98.1 F 113 16 136/89 100 - Laboratory Result Diagrams: 07/19/18 12:22 07/19/18 12:22 Lab Statement: Any lab studies that have been ordered have been reviewed, and results considered in the medical decision making process. - EKG 1232 Cardiac Rate: Tachycardia - 114 BPM EKG Rhythm: Sinus Tachycardia ST Segment: Normal Ectopy: None Summary of EKG Findings: No ST Elevations, No axis. Re-Evaluation - Re-Evaluation First Eval Re-Evaluation Time: 13:19 Comment: Results discussed with patient. GIGU Course/Dx - Course Assessment/Plan: This patient is a 32-year-old female who presents to the emergency department with chief complaint of having slight dizziness, palpitations and she started having vaginal bleed since last night. She reports that she has history of uterine fibroids and she has been bleeding heavily. She has seen her S IRON WORK[facility] doctor Dr. iWnter and he has found out that the patient is being anemic. The patient is taking Adderall pills however because of the symptoms he referred to the emergency room for further workup and management. Patient denies any headache, denies any blood patient, denies any chest pain or shortness of breath. In the ED course we obtained an IV access, I believe cholecystitis and blood work was ordered. Blood test results shows wbcs of 6.3, hemoglobin 6.7, hematocrit 23, platelet is 364. PTT is 22.8. At this time since the patient is having a symptomatic anemia with a hiatal deficiency anemia I order a blood transfusion. I discussed the benefits and risk of blood transfusion with the patient and she agrees for the transfusion. Consent is on the chart. I discussed my physical exam and findings with and Dr. Herman from the S [facility] WORK[facility] and he will admit the patient to his services for further workup and management. The patient is hemodynamically stable alert and oriented 3. - Diagnoses Provider Diagnoses: Vaginal bleeding, Symptomatic anemia - Critical Care Time Critical Care Time: 75-104 min Discharge - Sign-Out/Discharge Documenting (check all that apply): Patient Departure - Admission Patient Received Moderate/Deep Sedation with Procedure: No - Discharge Plan Condition: Stable Disposition: ADMITTED TO [facility] Referrals: Melissa Costello MD [Primary Care Provider] - - Billing Disposition and Condition Condition: STABLE Disposition: Admitted to [facility] - Attestation Statements Document Initiated by Chuchoibe: Yes Documenting Scribe: Angel German Provider For Whom Jyotsna is Documenting (Include Credential): Pedrito Rodriges MD Scribe Attestation: Angel Mantilla, scribed for Pedrito Rodriges MD on 07/19/18 at 1348. Scribe Documentation Reviewed: Yes Provider Attestation: The documentation as recorded by the Angel tran accurately reflects the service I personally performed and the decisions made by , Pedrito Rodriges MD Status of Scribe Document: Viewed
[2018-07-19] MEDS ORDERED: NS 0.9% 1000 ML** 1,000 ML IV ONE (12:56)
[2018-07-19 13:01] LABS: ABS Basophils 0.1 10^3/ul (0-0.2); ABS Eosinophils 0.2 10^3/ul (0-0.6); ABS Lymphocytes 1.2 10^3/ul (1.0-4.8); ABS Monocytes 0.3 10^3/ul (0-0.8); ABS Neutrophils 4.5 10^3/ul (1.5-7.7); Eosinophil % 3.9 %; Hematocrit 23 % (35-47); Hemoglobin 6.7 g/dL (12.0-16.0); Lymphocyte % 18.9 %; Mean Corpuscular HGB Conc 30 g/dL (31-36); Mean Corpuscular Hemoglobin 19 pg (27-31); Mean Corpuscular Volume 63 fL (80-97); Nucleated Red Blood Cells % 0.2; Platelet Count 364 10^3/uL (150-450); Red Blood Count 3.62 10^6 /uL (3.70-4.87); Red Cell Distribution Width 16 % (10.5-15); White Blood Count 6.3 10^3/uL (3.5-10.8)
[2018-07-19 13:11] LABS: Activated Partial Thrombo Time 22.8 seconds (26.0-36.3); INR 1.06 (0.82-1.09)
[2018-07-19 13:15] LABS: Albumin/Globulin Ratio 1.4 (1-3); BUN/Creatinine Ratio 18.8 (8-20); Calcium 8.6 mg/dL (8.6-10.3); EGFR African American 120.1 (>60); EGFR Non-African American 99.2 (>60); Globulin 2.8 g/dL (2-4); Potassium 3.9 mmol/L (3.5-5.0); Total Bilirubin 0.2 mg/dL (0.2-1.0); Total Protein 6.8 g/dL (6.4-8.9)
[2018-07-19 13:19] LABS: Microcytosis 2+; Polychromasia 1+
--- NOTE | 2018-07-19 16:22 | HP ---
History of Present Illness - History of Present Illness Reason for Visit: Abnormal Uterine Bleeding History of Present Illness: Mrs. Bautista is a 32 yo lady with known Uterine Fibroids and secondary menorrhagia and anemia. She started vaginal bleeding yesterday at noon and today presented to the Emergency room with persistent heavy vaginal bleeding, feeling lightheaded and dizziness. Her last hemoglobin at her last office visit was 6.9g/dl and in the ER was 6.7 along with positive orthostatic signs/ symptoms. She is being admitted for blood transfusion, monitoring. 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 Alcohol: Occassional - infrequent Drugs: None Review of Systems - Review of Systems Constitutional: Negative: Fever, Chills, Sweats, Weakness, Malaise, Other Respiratory: Positive: SOB with Excertion Cardiovascular: Positive: Light Headedness Gastrointestinal: Negative: Nausea, Vomiting, Abdominal Pain, Diarrhea, Constipation, Melena, Hematochezia, Other Genitourinary: Negative: Dysuria, Frequency, Incontinence, Hematuria, Retention , Other Neurological: Negative: Weakness, Numbness, Incoordination, Change in Speech, Confusion, Seizures, Other - Medications/Allergies Allergies/Adverse Reactions: Allergies Allergy/AdvReac Type Severity Reaction Status Date / Time Seasonal/Environmental Allergy Congestion Uncoded 07/19/18 12:10 Allergies Medications: Current Medications Sodium Chloride (Ns 0.9% 1000 Ml) 1,000 mls @ 125 mls/hr IV PER RATE ARLYN Exam - Exam Vital Signs: Vital Signs (72 hours) 07/19/18 07/19/18 07/19/18 12:10 12:39 13:06 Temperature 98.1 F Pulse Rate 113 116 122 Respiratory 16 Rate Blood Pressure 136/89 (mmHg) O2 Sat by Pulse 100 100 98 Oximetry 07/19/18 07/19/18 07/19/18 14:00 14:10 14:39 Temperature Pulse Rate 115 115 106 Respiratory Rate Blood Pressure 133/85 135/96 (mmHg) O2 Sat by Pulse 100 99 99 Oximetry 07/19/18 07/19/18 07/19/18 14:50 15:00 15:09 Temperature Pulse Rate 105 103 103 Respiratory Rate Blood Pressure 133/93 129/85 (mmHg) O2 Sat by Pulse 100 99 100 Oximetry 07/19/18 07/19/18 15:37 15:52 Temperature 99.7 F Pulse Rate 103 Respiratory 18 18 Rate Blood Pressure 129/85 (mmHg) O2 Sat by Pulse 100 Oximetry General: Alert, Oriented x3, Cooperative, No acute distress Lungs: Clear to auscultation, Normal air movement Cardiovascular: Regular rate Abdomen: Normal bowel sounds, Soft, No tenderness, No hepatospenomegaly, No masses Neurological: Normal speech Psych/Mental Status: Mental status NL Assessment/Plan - Assessment/Plan Assessment: Menorrhagia secondary to Uterine Fibroids with chronic and acute blood loss anemia, symptomatic Plan: IV hydration Blood transfusion 2 Units PRBC NPO after midnight Admission discussed with her Pan Dumper Dr. Chay Conroy, we also discussed the possibility for surgical treatment during this hospitalization.
[2018-07-19] MEDS: NS 0.9% 1000 ML** 1,000 ML IV SCH (17:59)
[2018-07-19 21:49] LABS: Hematocrit 29 % (35-47); Hemoglobin 8.6 g/dL (12.0-16.0); Mean Corpuscular HGB Conc 29 g/dL (31-36); Mean Corpuscular Hemoglobin 21 pg (27-31); Mean Corpuscular Volume 72 fL (80-97); Mean Platelet Volume 8.5 fL (7.4-10.4); Platelet Count 329 10^3/uL (150-450); Red Blood Count 4.07 10^6 /uL (3.70-4.87); Red Cell Distribution Width 23 % (10.5-15); White Blood Count 9.3 10^3/uL (3.5-10.8)
[2018-07-20] MEDS: NS 0.9% 1000 ML** 1,000 ML IV SCH (03:14)
[2018-07-20] MEDS ORDERED: Famotidine IV* 10 MG/ML 2 ML (20 mg) IV ONE (08:04)
[2018-07-20] MEDS ORDERED: Buffered Lidocaine 1% SYRIN* 1 ML/SYRINGE INTRADERM ONE (08:06)
[2018-07-20] MEDS ORDERED: Dexamethasone TAB* 4 MG PO ONE (08:06)
[2018-07-20] MEDS ORDERED: Ondansetron INJ* 2 MG/ML VIAL ONE (08:06)
[2018-07-20] MEDS ORDERED: Lactated Ringers 1000 ML Bag* 1,000 ML IV SCH (09:00)
[2018-07-20] MEDS ORDERED: PROCHLORPERAZINE INJ 5 MG/ML 2 ML VIAL IV PRN (10:36)
[2018-07-20] MEDS ORDERED: fentaNYL* 50 MCG/ML 2 ML VIAL (100 MCG VIAL) IV PRN (10:36)
[2018-07-20] MEDS ORDERED: DiMENhydriNATE IV* 50 MG/ML VIAL IV PUSH PRN (10:36)
[2018-07-20] MEDS ORDERED: Naloxone* 0.4 MG/ML 1 ML VIAL IV PRN (10:36)
[2018-07-20] MEDS ORDERED: oxyCODONE/Acetamin 5/325 MG* TAB PO PRN (10:36)
[2018-07-20] MEDS ORDERED: Scopolamine 1.5 mg* PATCH TRANSDERM PRN (10:36)
[2018-07-20] MEDS ORDERED: Morphine 4 MG/ML VIAL (1 ml) 4 MG/ML VIAL IV PRN (10:36)
[2018-07-20] MEDS ORDERED: Midazolam* 1 MG/ML 5 ML VIAL (5 MG) ONE (10:46)
[2018-07-20] MEDS ORDERED: fentaNYL* 50 MCG/ML 2 ML VIAL (100 MCG VIAL) ONE ×2 (10:46→12:54)
[2018-07-20] MEDS ORDERED: KETAMINE HCL* 50 MG/ML 10 ML VIAL ONE (10:46)
[2018-07-20] MEDS ORDERED: Lidocaine 2% PF * 5 ML VIAL ONE ×2 (10:48→12:43)
[2018-07-20] MEDS ORDERED: Propofol* 10 MG/ML 20 ML BTL ONE ×2 (10:48→12:43)
[2018-07-20] MEDS ORDERED: Ondansetron ODT TAB* 4 MG ONE (11:12)
[2018-07-20] MEDS ORDERED: Dexamethasone TAB* 4 MG ONE (11:12)
[2018-07-20] MEDS ORDERED: VASOPRESSIN 20 UNITS/ML 1 ML VIAL ONE (12:03)
[2018-07-20] MEDS ORDERED: PROCHLORPERAZINE INJ 5 MG/ML 2 ML VIAL ONE (12:43)
[2018-07-20] MEDS ORDERED: ceFOXitin(*) 1 GM VIAL ONE (12:59)
[2018-07-20] MEDS ORDERED: Ketorolac INJ* 30 MG/ML 1 ML VIAL ONE (13:08)
[2018-07-20 14:20] VITALS: BP 129/88
[2018-07-20] MEDS ORDERED: Acetaminophen TAB* 325 MG ONE (14:46)
--- NOTE | 2018-07-22 13:11 | OP ---
OPERATIVE REPORT: DATE OF OPERATION: DATE OF : 87 SURGEON: Mike Conroy MD ANESTHESIA: General endotracheal tube. PRE-OP DIAGNOSES: Submucous fibroid and anemia. POST-OP DIAGNOSIS: Submucous fibroid and anemia. OPERATIVE PROCEDURE: Hysteroscopic resection of submucous fibroid. COMPLICATIONS: Significant dilation of the cervix. FINDINGS: On exam under anesthesia, the uterus was mid position. There was a dilated cervix, but no mass protruded out the cervix as was seen previous on exam. DESCRIPTION OF PROCEDURE: The patient was identified, procedure identified as a D and C hysteroscopy , MyoSure resection. The patient was taken to the operating room, prepped and draped in the usual fa shion in dorsal lithotomy position under general anesthesia. The cervix was grasped with 2 single-to oth tenaculums. Again, the expected mass that had been protruding through the cervical os was not pr esent. It was visible through the cervical os and was grasped initially with an Allis and then with a Imrta and what could be brought out was brought out through the incision, this was excised using the Bovie. Further attempts at bringing the whole fibroid out through the incision were unsuccessful. Hysteroscope was inserted and no good seal was obtained and water, the distention medium came right b ack out when it flowed in. An attempt was made to use the hysteroscopic MyoSure to resect, but becau se of poor distention, it was difficult to get good visualization and after resection of some of the myoma through the hysteroscope using the MyoSure, the procedure was abandoned. Good hemostasis was v erified. At beginning of the procedure, vasopressin 20 units in 100 was injected approximately 10 c c into the leiomyoma. On hysteroscopy, it was noted that there was a posterior fibroid that was fill ing the cavity and obscured visualization. [id number]/[facility] #: [id number]
[2018-07-23] MEDS ORDERED: Scopolamine PATCH Remove* 1 NOTE MISC PATCH OFF ONE (10:38)
--- NOTE | 2018-07-23 11:32 | DS ---
CC: Melissa Costello MD DISCHARGE SUMMARY: DATE OF ADMISSION: 07/19/18 DATE OF DISCHARGE: 07/20/18 PRIMARY CARE PHYSICIAN: Melissa Costello MD PRINCIPAL DIAGNOSES: 1. Abnormal uterine bleeding. 2. Submucous leiomyoma. 3. Anemia. PROCEDURES: Include: 1. D and C. 2. Hysteroscopy. 3. Partial resection of submucous fibroid using MyoSure. COMPLICATIONS: Incomplete removal of her submucous fibroid. She also had 2 units of packed cells tr ansfused. She was sent home on iron and ibuprofen and follow up in the office within a week to recei ve Lupron injection and reschedule a subsequent resection. HISTORY: This is a 32-year-old 0 with uterine fibroids and secondary menorrhagia and anemia. She had started bleeding the previous day prior to admission at noon and presented to the emergency room with persistent heavy vaginal bleeding and feeling lightheaded and dizzy. Her hemoglobin at e office was 6.9, in the ER was 6.7 with orthostatic symptoms. She was admitted and transfused 2 uni ts of blood. On ultrasound, there was a 4 cm submucous fibroid seen. She on hospital day #2 underwe nt a hysteroscopy and partial resection of the submucous fibroid. Initially, when had been seen in t he office, the submucous fibroid had been prolapsing to the cervix. At the time of surgery, it was n o longer doing this, it was inside the cavity. As much of it could be brought out through the cervix was brought out, but the cervix was opened and there was no way to successfully operate through the hysteroscope with any safety because of a poor seal around the hysteroscope. Hence, the procedure wa s abandoned after resection of approximately one third of the fibroid. She did well postoperatively, went home on the same day, preop hemoglobin was 8.6, blood loss was not significant during the proce dure. Pathology includes leiomyoma. [id number]/[facility] #: [id number]
== END 2018-07-20 15:00 | disposition home or self-care (01) ==
LOC: ED 12:07 → SSU 13:40
PROVIDERS: ADMIT Obstetrics & Gynecology; ATTEND Obstetrics & Gynecology
DX: D25.9 Leiomyoma of uterus, unspecified (principal); N92.0 Excessive and frequent menstruation with regular cycle; R06.02 Shortness of breath; R42 Dizziness and giddiness; D62 Acute posthemorrhagic anemia; R00.2 Palpitations; N93.9 Abnormal uterine and vaginal bleeding, unspecified
CPT/HCPCS: 36415; 36430; 76856; 80053; 81025; 85025; 85027; 85610; 85730; 86850; 86900; 86901; 86922; 88305; 93005; 96361; 96372; 96374; 96375; 96376; 99283; A9270-GY; G0378; J0694; J0780; J1885; J2250; J2704; J3010; J8540; P9040

== ENCOUNTER → 2018-10-29 10:25 | Day surgery (SDC) | payer BC ==
[~2018-10-29 10:25] MED LIST changes: -Buffered Lidocaine 0.9% SYRIN* 5 ML/SYR SYRINGE INTRADERM ONE; +Buffered Lidocaine 1% SYRIN* 1 ML/SYRINGE INTRADERM ONE; +Dexamethasone IV* 4 MG/ML 1 ML (4 MG) ONE; +DiMENhydriNATE IV* 50 MG/ML VIAL IV PUSH PRN; +Famotidine IV* 10 MG/ML 2 ML (20 mg) ONE; +Ketorolac INJ* 30 MG/ML 1 ML VIAL ONE; +Lactated Ringers 1000 ML Bag* 1,000 ML IV SCH; +Lidocaine 2% PF * 5 ML VIAL ONE; +Midazolam* 1 MG/ML 5 ML VIAL (5 MG) ONE; +Naloxone* 0.4 MG/ML 1 ML VIAL IV PRN; +Ondansetron INJ* 2 MG/ML VIAL IV PRN; +Ondansetron INJ* 2 MG/ML VIAL ONE; +Propofol* 10 MG/ML 20 ML BTL ONE; +Sodium Citrate/Citric Acid* 15 ML UDC PO ONE; +fentaNYL* 50 MCG/ML 2 ML VIAL (100 MCG VIAL) IV PRN; +fentaNYL* 50 MCG/ML 5 ML VIAL (250 MCG VIAL) ONE; +oxyCODONE/Acetamin 5/325 MG* TAB PO PRN
[2018-10-29 14:05] VITALS: BP 145/98
--- NOTE | 2018-10-29 15:11 | OP ---
DATE OF OPERATION: 10/29/18 - [facility] DATE OF : 87 SURGEON: Mike Conroy MD. ANESTHESIA: General endotracheal tube. PRE-OP DIAGNOSIS: Submucous fibroid. POST-OP DIAGNOSIS: Submucous fibroid. OPERATIVE PROCEDURE: Hysteroscopic resection of a submucous leiomyoma. COMPLICATIONS: None. ESTIMATED BLOOD LOSS: 50 cc. DEFICIT: 820 cc. FINDINGS: On exam under anesthesia, the uterus was mid position. Cervix, vagina, and vulva appeared normal. On hysteroscopy, there was a 3 x 4 cm multilobulated submucous fibroid, part of which was calcified, part of which looked relatively new. The rest of the cavity appeared normal. DESCRIPTION OF PROCEDURE: The patient was identified, procedure identified as a hysteroscopy and myomectomy. The patient was taken to the operating room, prepped and draped in the usual fashion in the dorsal lithotomy position under general anesthesia. Two single tooth tenaculums were placed in the anterior lip of the cervix. Cervix was easily dilated through a #24 Sunny dilator and the hysteroscope was inserted using the MyoSure XL. The fibroid was started in midline and resected medially and then as the sidewalls of the fibroid came in, these were resected until all of the fibroid was resected, flushed with the endometrial cavity. At the end of the procedure, a nice flush cavity was noted with a slight dig into the myometrium and a tiny bit of fibroid left within the myometrium, but no perforations or other complications were seen or considered. A total of the submucous portion of the fibroid was resected. All instruments removed from the vagina. Good hemostasis was verified and the patient returned to recovery room in stable condition. All sponge and instrument counts were correct. [id number]/[facility] #: [id number] [facility]
== END | disposition home or self-care (01) ==
LOC: OR 10:25
PROVIDERS: ATTEND Obstetrics & Gynecology
DX: D25.0 Submucous leiomyoma of uterus (principal)
CPT/HCPCS: 81025; 88305; J1100; J1885; J2250; J2405; J2704; J3010

== ENCOUNTER 2019-04-11 15:15 | Emergency (ER) | payer BC ==
[2019-04-11] MEDS ORDERED: HYDROcodone/ACETAMIN 5-325 MG* 1 TAB PO ONE (15:37)
[2019-04-11 17:55] VITALS: BP 128/76
--- NOTE | 2019-04-12 07:02 | ED ---
Lower Extremity - HPI Summary HPI Summary: This patient is a 33-year-old female presenting to the ED with injury to the right ankle. She states she slipped on wet snow on a slope and fell. She denies any other injuries. She is complaining of pain to the medial and lateral side of the ankle with diffuse swelling and ecchymosis. Ice was applied at triage. She states she has some tingling also in the foot and in the toes. This has been intermittent. Patient states at rest she denies any pain, however upon attempting to move at the ankle joint, she is endorsing a 10/ 10 pain. - History of Current Complaint Chief Complaint: EDExtremityLower Stated Complaint: ANKLE INJURY Time Seen by Provider: 04/11/19 15:33 Hx Obtained From: Patient Hx Last Menstrual Period: 06/03/16 Mechanism Of Injury: Twisted Onset of Pain: Hours Onset/Duration: Hours Severity Initially: Moderate Severity Currently: Moderate Pain Intensity: 2 Pain Scale Used: 0-10 Numeric Location: Is Discrete @ - right ankle Character Of Pain: Aching Associated Signs And Symptoms: Positive: Swelling, Bruising. Negative: Redness Aggravating Factor(s): Standing, Ambulation Alleviating Factor(s): Rest Able to Bear Weight: No - Allergies/Home Medications Allergies/Adverse Reactions: Allergies Allergy/AdvReac Type Severity Reaction Status Date / Time Seasonal/Environmental Allergy Congestion Uncoded 04/11/19 15:24 Allergies PMH/Surg Hx/FS Hx/Imm Hx Previously Healthy: Yes Endocrine/Hematology History: Reports: Hx Anemia - ON IRON SUPPLEMENTS BID Denies: Hx Diabetes, Hx Thyroid Disease Cardiovascular History: Denies: Hx Hypertension, Hx Pacemaker/ICD, Other Cardiovascular Problems/ Disorders Respiratory History: Reports: Hx Pneumonia - 2009 Denies: Hx Asthma, Hx Chronic Obstructive Pulmonary Disease (COPD), Other Respiratory Problems/Disorders GI History: Denies: Hx Ulcer, Other GI Disorders History: Reports: Hx Kidney Infection - 2016, Pyelonephritis with urosepsis- E Coli [place] [facility] [place] Denies: Hx Renal Disease, Other Problems/Disorders Musculoskeletal History: Reports: Hx Orthopedic Injury - ACL tear Denies: Other Musculoskeletal History Sensory History: Denies: Hx Contacts or Glasses, Hx Hearing Aid Opthamlomology History: Denies: Hx Contacts or Glasses Neurological History: Denies: Other Neuro Impairments/Disorders Psychiatric History: Denies: Hx Panic Disorder - Surgical History Surgery Procedure, Year, and Place: 2015 [place] teeth. May 2015ACL repair - [facility] May 2015- [facility] -. 04/2017 & 07/2018 [facility] Hx Anesthesia Reactions: No - Immunization History Date of Influenza Vaccine: none Hx Pertussis Vaccination: No Immunizations Up to Date: Yes Infectious Disease History: No Infectious Disease History: Denies: Hx Clostridium Difficile, Hx Hepatitis, Hx Human Immunodeficiency Virus (HIV), Hx of Known/Suspected MRSA, Hx Shingles, Hx Tuberculosis, Hx Known/ Suspected VRE, Hx Known/Suspected VRSA, History Other Infectious Disease, Traveled Outside the [place] in Last 30 Days - Family History Known Family History: Positive: Diabetes - Both grandparents., Other - Renal calculi father. Negative: Cardiac Disease, Hypertension - Social History Occupation: Employed Full-time Lives: With Family Alcohol Use: Occasionally Alcohol Amount: one day a week Hx Substance Use: No Substance Use Type: Reports: None Smoking Status (MU): Never Smoked Tobacco Have You Smoked in the Last Year: No Review of Systems Negative: Fever, Chills, Fatigue, Skin Diaphoresis Negative: Palpitations, Chest Pain Negative: Shortness Of Breath, Cough Positive: Arthralgia, Decreased ROM, Edema Skin: Negative All Other Systems Reviewed And Are Negative: Yes Physical Exam Triage Information Reviewed: Yes Vital Signs On Initial Exam: Initial Vitals Temp Pulse Resp BP Pulse Ox 99.1 F 94 16 128/78 100 04/11/19 15:20 04/11/19 15:20 04/11/19 15:20 04/11/19 15:20 04/11/19 15:20 Vital Signs Reviewed: Yes Appearance: Positive: Well-Appearing, Well-Nourished Skin: Positive: Skin Color Reflects Adequate Perfusion, Other - ecchymosis to the R ankle Eyes: Positive: EOMI, SHAISTA, Conjunctiva Clear Neck: Positive: Supple, No Lymphadenopathy Respiratory/Lung Sounds: Positive: Clear to Auscultation, Breath Sounds Present Cardiovascular: Positive: RRR, Pulses are Symmetrical in both Upper and Lower Extremities Musculoskeletal: Positive: Pain @ - right ankle pain Neurological: Positive: Speech Normal Psychiatric: Positive: Affect/Mood Appropriate AVPU Assessment: Alert Procedures - Sedation Patient Received Moderate/Deep Sedation with Procedure: No Diagnostics - Vital Signs Vital Signs Temp Pulse Resp BP Pulse Ox 04/11/19 17:53 97.3 F 68 16 128/76 99 04/11/19 15:20 99.1 F 94 16 128/78 100 - Laboratory Lab Statement: Any lab studies that have been ordered have been reviewed, and results considered in the medical decision making process. Lower Extremity Course/Dx - Course Course Of Treatment: Pt given pain management on arrival d/t appearance of acute pain distress. During the course of treatment, the patient is evaluated for right ankle injury. There is a deformity noted, ecchymosis, patient is unable to plantarflex or dorsiflex at the ankle. She endorses a "achiness" to the proximal right lower extremity of the tib/fib. X-rays of the ankle and lower extremities are obtained which show evidence of a trimalleolar fracture. Discussed case with Dr. Garcia who recommends slight inversion of the foot with posterior with u-slab plaster splint. This applied. Pt tolerated well. CT obtained per ortho recommendation. Crutches given. Pain management given. Ortho follow up. - Diagnoses Differential Diagnosis/HQI/PQRI: Positive: Dislocation Provider Diagnoses: Trimalleolar fracture of right ankle - Physician Notifications Discussed Care Of Patient With: Karl Clayton Instructed by Provider To: Have Pt Call For Appt. Discharge ED - Sign-Out/Discharge Documenting (check all that apply): Patient Departure - Discharge Plan Condition: Stable Disposition: HOME Prescriptions: HydroCODONE/Acetamin 10/325 NF [[place] 10/325 (NF)] 1 tab PO Q6H #12 tab MDD 4 Patient Education Materials: Ankle Fracture (ED) Referrals: Karl Clayton MD [Medical Doctor] - Melissa Costello MD [Primary Care Provider] - Additional Instructions: Hydrocodone up to four times daily for pain control Ibuprofen 600mg four times daily elevate as much as possible non weight bearing crutches - Billing Disposition and Condition Condition: STABLE Disposition: Home
== END 2019-04-11 17:50 | disposition home or self-care (01) ==
LOC: ED 15:15
DX: S82.851A Displaced trimalleolar fracture of right lower leg, initial encounter for closed fracture (principal); W00.0XXA Fall on same level due to ice and snow, initial encounter; Y92.9 Unspecified place or not applicable; D64.9 Anemia, unspecified
CPT/HCPCS: 99282

== ENCOUNTER → 2019-04-15 11:55 | Day surgery (SDC) | payer BC ==
[~2019-04-15 11:55] MED LIST changes: +Acetaminophen TAB* 325 MG ONE; +Acetaminophen TAB* 325 MG PO ONE; +Bupivacaine 0.5% SDV PF* 30ML VIAL ONE; +Bupivacaine 0.5%* 50 ML MDV VIAL ONE; -Dexamethasone IV* 4 MG/ML 1 ML (4 MG) IV SLOW PU ONE; +Gabapentin CAP(*) 300 MG ONE; +Gabapentin CAP(*) 300 MG PO ONE; +HYDROcodone/ACETAMIN 5-325 MG* 1 TAB PO PRN; +Midazolam* 1 MG/ML 2 ML VIAL (2 MG) ONE; -Midazolam* 1 MG/ML 5 ML VIAL (5 MG) ONE; +Scopolamine 1.5 mg* PATCH TRANSDERM PRN; +Scopolamine PATCH Remove* 1 NOTE MISC PATCH OFF ONE; -Sodium Citrate/Citric Acid* 15 ML UDC PO ONE; +ceFAZolin 2 GM PREMIX in ORs 2 GM/50 ML BAG ONE; +diPHENhydraMINE IV* 50 MG/ML 1 ml VIAL (BENADRYL) IV PRN; +fentaNYL* 50 MCG/ML 2 ML VIAL (100 MCG VIAL) ONE; -fentaNYL* 50 MCG/ML 5 ML VIAL (250 MCG VIAL) ONE; -oxyCODONE/Acetamin 5/325 MG* TAB PO PRN
--- NOTE | 2019-04-15 15:25 | OP ---
Operative Report - Blank - Operative Report Date of Operation: 04/15/19 Note: PATIENT: Regla Bautista DATE OF : 1985 DATE OF SURGERY: 04/15/2019 SURGEON: Loyd Rodriguez MD FINANCE CLERK: Donna Rodgers/XUAN Fitch, whos assistance was necessary for positioning, retraction, help with instrumentation, and closure. ANESTHESIOLOGIST: Dr. Simmons PREOPERATIVE DIAGNOSIS: Right trimalleolar ankle fracture POSTOPERATIVE DIAGNOSIS: Right trimalleolar ankle fracture OPERATION: 1. Right trimalleolar ankle fracture open reduction and internal fixation of medial and lateral malleoli. 2. Stress views performed by surgeon utilizing fluoroscopy under anesthesia. ANESTHESIA: General + block IMPLANTS: Arthrex ankle fracture set plate and screws TOURNIQUET TIME: 65 minutes with a well-padded thigh tourniquet at 250mmHg SPECIMENS: none ESTIMATED BLOOD LOSS: minimal COMPLICATIONS: none STATUS: Stable from the operating room to the recovery room and then home. INDICATIONS FOR PROCEDURE: Regla fell walking her dog and sustained the above injury. Both operative and non operative treatment alternatives were reviewed. Further, the nature and risks of surgery were reviewed in careful detail, in the office as well as the pre-operative holding area. Our discussions regarding the risks of surgery included, but were not limited to, infection, wound problems, nerve injury, neuroma, RSD, persistent symptoms, blood clot, nonunion, malunion, post- traumatic arthritis, hardware failure, failure of the surgery, and even the remote chance of catastrophic complication. DESCRIPTION OF PROCEDURE: The patient was seen in the preoperative holding unit and informed written consent was obtained. The appropriate extremity was marked. The patient was then brought to the operating room and carefully positioned on the operating room table. Anesthesia was induced. All bony prominences were padded with great care. A well-padded thigh tourniquet was placed. A chlorhexidine based pre- scrub was performed followed by a chloraprep prep and drape in standard sterile fashion. A surgical safety pause was then conducted in which we confirmed the appropriate patient, extremity, planned procedure, availability of equipment, indication and administration of prophylactic antibiotics, and DVT prophylaxis in the form of a compression boot on the non-surgical extremity. I began with an Esmarch exsanguination of the limb and inflated the tourniquet. I then utilized a laterally based incision overlying the distal fibula. Great care was taken to protect the superficial peroneal nerve, which was not visualized within the field of view. I dissected down through the soft tissue layers to expose the distal fibula. I then exposed the fractures. Fracture hematoma was removed. I gained a reduction utilizing a pointed reduction clamp and then held this provisionally with K-wires. I placed an Arthrex anatomic distal fibula plate laterally and then confirmed the reduction and the position of the plate fluoroscopically. I placed screws to hold the plate to the bone. The anterior free fragment was not captured by the plate, so I placed an A to P 3.0 millimeter screw to hold this piece fixated. The provisional fixation was removed and then I again confirmed fluoroscopically the appropriate position of the plate and screw lengths. I made an approximately 4cm incision over the medial malleolus. The fracture was exposed and hematoma was removed. Reduction of the medial malleolar fracture was obtained with a pointed reduction clamp. I placed guidewires for 4.0 mm cannulated screws. I confirmed the position of the guidewires fluoroscopically. I then overdrilled the wires and placed 2 partially threaded 4.0 mm cannulated screws. I then removed the guidewires and obtained fluoroscopic images. At this point, I performed a stress fluoroscopic examination. I utilized a Cotton test, as well as an external rotation stress test, to evaluate the distal tib-fib syndesmosis. There was no instability appreciated through the syndesmosis. I also directly palpated and visualized the syndesmosis and did not feel any abnormal motion. I also performed a posteriorly directed stress test and there was no posterior instability appreciated, so I elected to treat the posterior malleolar fracture in a closed manner. At this point, we irrigated copiously and then closed in layers meticulously utilizing 3-0 Monocryl for the deep and subdermal layers and 3-0 nylon for the skin. A sterile dressing was then applied followed by a splint with the ankle in a neutral position. The patient was then awakened from anesthesia and transferred to the recovery room in stable condition. There were no complications. All needle and sponge counts were correct at the end of the case. ATTESTATION: I attest I was present and scrubbed and performed the critical portions of the procedure myself. POSTOPERATIVE PLAN: The postop plan is for [id number] for an anticipated duration of 6 weeks. Follow-up will be in 2 weeks. At that time we will likely transition into a [id number] aircast boot. We will use aspirin for DVT prophylaxis.
[2019-04-15 16:35] VITALS: BP 132/67
== END | disposition home or self-care (01) ==
LOC: OR 11:55
PROVIDERS: ATTEND Orthopaedic Surgery
DX: S82.851A Displaced trimalleolar fracture of right lower leg, initial encounter for closed fracture (principal); W19.XXXA Unspecified fall, initial encounter; Y93.K1 Activity, walking an animal; Y92.89 Other specified places as the place of occurrence of the external cause; G89.18 Other acute postprocedural pain; Z87.440 Personal history of urinary (tract) infections
CPT/HCPCS: 36415; 76000; 84702; A9270-GY; C1713; C1776; J0690; J1100; J1885; J2250; J2405; J2704; J3010; J3490